=== PATIENT | male | born 1960 | race Caucasian/White ===

== ENCOUNTER 2020-10-04 06:07 | Emergency (ER) | payer OTHER, SELFPAY ==
[2020-10-04] VITALS (9 sets, daily range): BP systolic 117–129; BP diastolic 78–89; PULSE 78–84; RESP 16–23; TEMP 34.3–36.4; O2SAT 99–100
--- NOTE | ~2020-10-04 | CT_ITS ---
EXAMINATION: CT brain wo con DATE: 10/04/2020 07:12 INDICATION: Altered mental status TECHNIQUE: Computed tomography (CT) of the head was performed without intravenous contrast. Sagittal and coronal reconstructions were performed. The mA was adjusted according to patient size. Iterative reconstruction technique was employed. The dose-length product was 605.33 mGy-cm. COMPARISON: None FINDINGS: No acute intracranial hemorrhage, acute infarction or abnormal extra axial fluid collection. There is mild scattered white matter hypoattenuation consistent with chronic small vessel ischemic disease. Ventricles are normal and symmetric. No mass/mass effect. The orbits, paranasal sinuses and mastoid a ir cells are normal. IMPRESSION: 1. Mild scattered white matter hypoattenuation consistent with chronic small vessel ischemic disease. Reviewed, dictated and finalized at location A. SERVICE WAITER IMPRESSION: 1. Mild scattered white matter hypoattenuation consistent with chronic small ve ssel ischemic disease.
--- NOTE | ~2020-10-04 | XR_ITS ---
EXAMINATION: XR chest 1V portable DATE: 10/04/2020 07:29 INDICATION: Altered mental status TECHNIQUE: frontal view of the chest was obtained. COMPARISON: None FINDINGS: The lungs are clear with no focal airspace opacities, pulmonary edema, pleural effusion or pneumothor ax. The cardiomediastinal silhouette is normal. Visualized bones and soft tissues are unremarkable. IMPRESSION: 1. No acute cardiopulmonary disease. Reviewed, dictated and finalized at location A. TOR TRAILER MECHANIC
--- NOTE | ~2020-10-04 | CT_ITS ---
EXAMINATION: CT cervical spine wo con DATE: 10/04/2020 07:12 INDICATION: Altered mental status. Found unresponsive on the ground. TECHNIQUE: Computed tomography (CT) of the cervical spine was performed without intravenous contrast. Automated exposure control and iterative reconstruction technique were employed. The dose-length pro duct was 468.58 mGy-cm. COMPARISON: None FINDINGS: Alignment is normal. Vertebral body heights are normal. 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 No acute fracture. Moderate disc height loss and moderate to s evere uncovertebral osteoarthritis at C3-C4 through C6-C7. There are posterior disc osteophyte comple x resulting in mild central canal stenosis at each of these levels. Mild disc height loss at C2-C3. C ervical facet osteoarthritis, severe on the left at C2-C3, moderate on the left at C3-C4 and minimal to mild at the remaining cervical facet joints. This results in multilevel mild bilateral neural fora yoly stenosis. Cervical soft tissues and apices of the lungs are unremarkable. IMPRESSION: 1. Moderate cervical spondylosis. No acute osseous abnormality. Reviewed, dictated and finalized at location A. SETTER
--- NOTE | 2020-10-04 06:23 | ED.AMS ---
HPI - Altered Mental Status General Chief Complaint: Altered Mental Status <Casandra Escalante MD - Last Filed: 10/04/20 23:46> Stated Complaint: ams <Casandra Escalante MD - Last Filed: 10/04/20 23:46> Time Seen by Provider: 10/04/20 06:14 <Casandra Escalante MD - Last Filed: 10/04/20 23:46> Source: EMS <Casandra Escalante MD - Last Filed: 10/04/20 23:46> patient and RN notes reviewed <Derick Denny MD - Last Filed: 10/04/20 17:28> Mode of arrival: EMS <Casandra Escalante MD - Last Filed: 10/04/20 23:46> ambulatory <Derick Denny MD - Last Filed: 10/04/20 17:28> Limitations: altered mental status <Casandra Escalante MD - Last Filed: 10/04/20 23:46> no limitations <Derick Denny MD - Last Filed: 10/04/20 17:28> History of Present Illness HPI narrative: This patient is a 54 year old male with unknown medical problems who presents via EMS for altered mental status. EMS states patient was found unresponsive on the ground by [facility]. EMS reports patient told them he took a bunch of percocet but otherwise he will not given any additional information. <Casandra Escalante MD - Last Filed: 10/04/20 23:46> Related Data Home Medications: Home Medications Medication Instructions Recorded Confirmed Unable to Obtain Home Medications 10/04/20 10/04/20 <Casandra Escalante MD - Last Filed: 10/04/20 23:46> Allergies/Adverse Reactions: Allergies Allergy/AdvReac Type Severity Reaction Status Date / Time Unable to Assess Allergy Verified 10/04/20 07:03 <Casandra Escalante MD - Last Filed: 10/04/20 23:46> Review of Systems Review of Systems: ROS unobtainable: Yes unobtainable due to mental status <Casandra Escalante MD - Last Filed: 10/04/20 23:46> [facility] Past Medical History Medical History: Medical History (Updated 10/04/20 @ 17:27 by Derick Denny MD) Medical history unknown Unknown family medical history <Casandra Escalante MD - Last Filed: 10/04/20 23:46> Social History Social History: Social History (Updated 10/04/20 @ 06:25 by Casandra Escalante MD) Smoking status: Smoker, status unknown <Casandra Escalante MD - Last Filed: 10/04/20 23:46> Exam Const: General: no acute distress <Casandra Escalante MD - Last Filed: 10/04/20 23:46> HENMT: Head: normocephalic and atraumatic <Casandra Escalante MD - Last Filed: 10/04/20 23:46> Face and sinus: face symmetric <Casandra Escalante MD - Last Filed: 10/04/20 23:46> Mouth: Yes lip normal <Casandra Escalante MD - Last Filed: 10/04/20 23:46> Eyes: Other: pinpoint pupils <Casandra Escalante MD - Last Filed: 10/04/20 23:46> Resp: Effort & Inspection: normal respiratory effort and no use of accessory muscles <Casandra Escalante MD - Last Filed: 10/04/20 23:46> Auscultation: clear to auscultation bilaterally <Casandra Escalante MD - Last Filed: 10/04/20 23:46> Cardio: Rate: regular rate <Casandra Escalante MD - Last Filed: 10/04/20 23:46> Rhythm: regular rhythm <Casandra Escalante MD - Last Filed: 10/04/20 23:46> Heart sounds: no murmurs <Casandra Escalante MD - Last Filed: 10/04/20 23:46> Skin: General skin exam: normal color <Casandra Escalante MD - Last Filed: 10/04/20 23:46> Neuro: General: moves all extremities <Casandra Escalante MD - Last Filed: 10/04/20 23:46> Course Reevaluation(s) Reevaluation #1: I Discussed case with Dr. Denny . Patient awaiting labs and CT. He accepts care of patient to determine disposition. <Casandra Escalante MD - Last Filed: 10/04/20 23:46> Currently patient is awake, alert and oriented x4. Patient is telling me that he lives in [place] and does not have friends, neighbors or family. He is a loner, does not work in because of disability. And would like to have a meal before he go. Patient was standing walking in the room to gather his cloTHS when I saw him. Patient denying any pain. <Derick Denny MD - Last Elvis
[2020-10-04 06:50] LABS: Glucose Point of Care 100 (65-105)
[2020-10-04 06:57] LABS: Basophils Percent Auto 0.5 % (0.2-1.2); Eosinophils Absolute Auto 0.3 K/mm3 (0-0.3); Eosinophils Percent Auto 3.6 % (0-4.4); Hematocrit 41.5 % (42.0-52.0); Hemoglobin 13.8 g/dL (14.0-18.0); Immature Granulocyte Absolute 0.04 K/mm3 (0.00-0.031); Immature Granulocyte Percent A 0.5 % (0-0.5); Lymphocytes Absolute Auto 1.93 K/mm3 (0.9-3.2); Lymphocytes Percent Auto 23.1 % (18.3-44.2); Mean Corpuscular HGB Conc 33.3 g/dl (32-36); Mean Corpuscular Hemoglobin 30.9 pg (26-34); Mean Platelet Volume 9.7 fl (7.4-10.4); Monocytes Absolute Auto 0.6 K/mm3 (0.1-0.6); Monocytes Percent Auto 7.2 % (2.6-8.5); Neutrophils Absolute Auto 5.4 K/mm3 (1.3-6.7); Neutrophils Percent Auto 65.1 % (45.5-73.1); Platelet Count Result 255 k/mm3 (150-375); Red Blood Count 4.46 M/mm3 (4.6-6.20); Red Cell Distribution Width 12.4 % (11.5-14.5); White Blood Count 8.3 K/mm3 (4.5-10.0)
[2020-10-04 06:59] LABS: Add Urine Microscopic? NO; Appearance Urine Clear (Clear); Bilirubin Urine Negative (Negative); Blood Urine Negative (Negative); Color Urine Yellow (Yellow); Glucose Urine UA Negative (Negative); Ketones Urine Negative (Negative); Leukocyte Esterase Ur Negative LEU/UL (Negative); Nitrate Urine Negative (Negative); Protein Urine Negative (Negative); Urobilinogen Urine Negative mg/dL (<2.0)
[2020-10-04 07:09] LABS: Ethanol < 10 mg/dL (<10)
[2020-10-04 07:10] LABS: Alanine Aminotransferase 14 U/L (4-50); Albumin Level 4.1 g/dL (3.5-5.1); Alkaline Phosphatase 61 U/L (38-126); Anion Gap 7 mmol/L (8-16); Aspartate Amino Transferase 24 U/L (17-59); Bilirubin,Total 0.4 mg/dL (0.2-1.3); Blood Urea Nitrogen 17 mg/dL (9-20); Calcium 9.1 mg/dL (8.4-10.2); Carbon Dioxide 27 mmol/L (22-30); Chloride 104 mmol/L (98-107); Estimated Glomerular Filt Rate > 60; Glucose 109 mg/dL (75-110); Magnesium 2.3 mg/dL (1.6-2.3); Potassium 4.1 mmol/L (3.4-5.0); Sodium 138 mmol/L (137-145)
[2020-10-04 07:17] LABS: Barbiturate Screen Urine Negative (Negative); Benzodiazepines Screen Urine Negative (Negative); Cannabinoid Screen Urine Negative (Negative); Cocaine Screen Urine Negative (Negative); Methadone Screen Urine Negative (Negative); Opiate Screen Urine Positive (Negative); Phencyclidine Screen Urine Negative (Negative)
[2020-10-04 07:18] LABS: INR 0.9; Prothrombin Time 12.8 Seconds (11.1-14.7)
[2020-10-04 07:19] LABS: Partial Thromboplastin Time 30.7 SECONDS (22.3-36.8)
[2020-10-04] MEDS: NALOXONE HCL 0.4 MG/ML VIAL IV PUSH (07:27)
[2020-10-04 07:31] LABS: Amphetamine Screen Urine Positive (Negative)
--- NOTE | 2020-10-04 08:08 | PC.NURSE ---
Pts called out and states that pt is having 6/10 left arm that started approx [address] Denny of this.
--- NOTE | 2020-10-04 08:44 | PC.NURSE ---
Pt temp rectally is 93.8. Pt has bed warmer on and blankets. Pt is not cold to touch. Informed Dr. Denny of this.
[2020-10-04] MEDS: NALOXONE HCL INJ 2 MG/2 ML AMP IV PUSH (11:06)
--- NOTE | 2020-10-04 11:07 | PC.NURSE ---
1 ml of Narcan was given per Dr. Denny
[2020-10-04 11:42] LABS: Base Excess ABG -1.8 mEq/l (+/-2.0); Fractional Inspired Oxygen 21 %; HCO3 ABG 22.7 mEq/l (22.0-26.0); Oxygen Content ABG 19.2 %vol (16.0-22.0); Oxygen Saturation ABG 96.3 % (95.0-100.0); Oxyhemoglobin 95.4 % THb (90.0-100.0); PO2 ABG 84.2 mmHg (80.0-100.0); PO2 FiO2 Ratio Arterial Blood 4.01 %; Total Hemoglobin 14.3 g/dL (12.0-18.0); pH ABG 7.394 (7.350-7.450)
[2020-10-04 11:43] LABS: Device ROOM AIR; Site Drawn LEFT BRACHIAL
[2020-10-04 11:55] LABS: Creatine Kinase 137 U/L (55-170)
[2020-10-04] MEDS: SODIUM CHLORIDE 0.9% IV 1,000 ML 999 ML IV CONT (12:02)
--- NOTE | 2020-10-04 12:54 | PC.NURSE ---
Pts temp was 97.6. Johann june was taken off of pt.
--- NOTE | 2020-10-04 13:06 | PC.NURSE ---
Pt is now able to state his name and say that he is in [place]. This RN asked pt what drugs he did and he stated that it wasnt drugs . Informed Dr. Denny of this.
--- NOTE | 2020-10-04 17:48 | PC.NURSE ---
Pt states that when he was brought in he had on a $1000 diving watch when he came in. Pt states he knows he had it. Asked charged nurse if watch was in safe, charge nurse looked and no watch was in there. This RN informed pt to contact [facility] due to them being the ones that found pt passed out. Pt was able to walk to exit with no difficulty
--- NOTE | 2020-10-04 18:18 | PC.NURSE ---
pt in lobby sleeping with head on desk. aroused and encouraged to call ride home. pt having difficulty using phone. instructions repeated multiple times. chargeback specialist made aware of pt in lobby.
== END 2020-10-04 17:54 | disposition home or self-care (01) ==
PROVIDERS: General Practice; Emergency Provider Emergency Medicine
DX: R41.82 Altered mental status, unspecified (principal); F19.10 Other psychoactive substance abuse, uncomplicated
CPT/HCPCS: 36415; 36600; 51701; 70450; 71045; 72125; 80053; 80307; 81003; 82550; 82805; 83735; 85025; 85610; 85730; 96361; 96374; 96376; 99284; J2310; J7030; J7050